=== PATIENT | male | born 1950 | race Caucasian/White ===

== ENCOUNTER 2021-04-25 19:30 | Emergency (ER) | payer MEDICARE, OTHER ==
[~2021-04-25] VITALS: Ht 177.8 cm; Wt 104.3 kg
--- NOTE | 2021-04-25 19:33 | NUR ---
pt bibself c/o fall. Pt aaox4 breathing evenly and unlabored. Pt states that he tripped, but is unsure over what. Pt denies hitting head. Pt has abrasion on left knee and left elbow. Pt has pain on rt wrist and left forearm. Pt attached to monitor and pox. Pt given blanket and call light within reach
[2021-04-25] MEDS ORDERED: TDAP [DIPH/PERTUSSIS/TET] 0.5 ML VIAL IM ONE ×2 (19:50→20:00)
--- NOTE | 2021-04-25 20:04 | NUR ---
xray at bedside
[2021-04-25] MEDS ORDERED: TRAM50TA2 PO (21:36)
--- NOTE | 2021-04-25 22:02 | NUR ---
Patient discharged to home in stable condition. Written and verbal after care instructions given. Patient verbalizes understanding of instruction.
[2021-04-25 22:03] VITALS: BP 110/74
== END 2021-04-25 22:03 | disposition home or self-care (01) ==
LOC: ER 19:50
DX: S62.111A Displaced fracture of triquetrum [cuneiform] bone, right wrist, initial encounter for closed fracture (principal); S50.02XA Contusion of left elbow, initial encounter; S80.212A Abrasion, left knee, initial encounter; W01.0XXA Fall on same level from slipping, tripping and stumbling without subsequent striking against object, initial encounter; Y93.89 Activity, other specified; Y92.89 Other specified places as the place of occurrence of the external cause; Y99.8 Other external cause status
CPT/HCPCS: 72100-TC; 73020; 73080-TC; 73100-TC; 73564-TC; 90715

== ENCOUNTER 2021-04-29 09:05 | Outpatient (CLI) | payer MEDICARE, OTHER ==
[~2021-04-29 09:05] MED LIST: TRAM50TA2 PO
== END 2021-04-29 23:59 | disposition home or self-care (01) ==
LOC: WOU 09:05
PROVIDERS: ATTEND Specialist
DX: S80.212A Abrasion, left knee, initial encounter (principal); S62.101A Fracture of unspecified carpal bone, right wrist, initial encounter for closed fracture; W52.XXXA Crushed, pushed or stepped on by crowd or human stampede, initial encounter; Y92.480 Sidewalk as the place of occurrence of the external cause; I42.9 Cardiomyopathy, unspecified; E79.0 Hyperuricemia without signs of inflammatory arthritis and tophaceous disease; Z87.891 Personal history of nicotine dependence
CPT/HCPCS: A6209; G0463

== ENCOUNTER 2021-05-13 09:15 | Outpatient (CLI) | payer MEDICARE, OTHER | END 2021-05-13 23:59 | disposition home or self-care (01) | LOC: WOU 09:15 | PROVIDERS: ATTEND Specialist | DX: S80.212D Abrasion, left knee, subsequent encounter (principal); W18.39XD Other fall on same level, subsequent encounter; I42.9 Cardiomyopathy, unspecified; E79.0 Hyperuricemia without signs of inflammatory arthritis and tophaceous disease | CPT/HCPCS: G0463 ==